=== PATIENT | female | born 1965 | race Two or more races ===

== ENCOUNTER 2021-09-22 06:00 | Inpatient (IN) | payer OTHER ==
[~2021-09-22] VITALS: Ht 157.5 cm; Wt 56.7 kg
[2021-09-29] MEDS ORDERED: INTESTINEX680 M1 PO (11:18)
[2021-09-29] MEDS ORDERED: LEVSIN/SL0.125 MG SL (11:18)
== END 2021-09-29 12:41 | disposition home or self-care (01) | DRG 742 ==
LOC: CIR.AMB 06:00 → O/R 15:13 → OB/GYN 15:13
PROVIDERS: Surgery; ADMIT Obstetrics & Gynecology Gynecology; ATTEND Obstetrics & Gynecology Gynecology
PROC: 0DTK4ZZ Resection of Ascending Colon, Percutaneous Endoscopic Approach (ICD-10-PCS; 2021-09-22)
PROC: 0DTB4ZZ Resection of Ileum, Percutaneous Endoscopic Approach (ICD-10-PCS; 2021-09-22)
PROC: 0DJD8ZZ Inspection of Lower Intestinal Tract, Via Natural or Artificial Opening Endoscopic (ICD-10-PCS; 2021-09-22)
PROC: 0DQH4ZZ Repair Cecum, Percutaneous Endoscopic Approach (ICD-10-PCS; 2021-09-22)
PROC: 0DQ84ZZ Repair Small Intestine, Percutaneous Endoscopic Approach (ICD-10-PCS; 2021-09-22)
PROC: 0DQN4ZZ Repair Sigmoid Colon, Percutaneous Endoscopic Approach (ICD-10-PCS; 2021-09-22)
PROC: 0DNW4ZZ Release Peritoneum, Percutaneous Endoscopic Approach (ICD-10-PCS; 2021-09-22)
PROC: 0UT64ZZ Resection of Left Fallopian Tube, Percutaneous Endoscopic Approach (ICD-10-PCS; principal; 2021-09-22 09:45)
PROC: 0UT14ZZ Resection of Left Ovary, Percutaneous Endoscopic Approach (ICD-10-PCS; 2021-09-22 09:45)
PROC: 05HB33Z Insertion of Infusion Device into Right Basilic Vein, Percutaneous Approach (ICD-10-PCS; 2021-09-27)
DX: D27.1 Benign neoplasm of left ovary (principal); K91.71 Accidental puncture and laceration of a digestive system organ or structure during a digestive system procedure; Z20.822 Contact with and (suspected) exposure to COVID-19; K66.0 Peritoneal adhesions (postprocedural) (postinfection)

== ENCOUNTER 2022-08-14 09:54 | Outpatient (CLI) | payer OTHER ==
[~2022-08-14 09:54] MED LIST: INTESTINEX680 M1 PO; LEVSIN/SL0.125 MG SL
== END 2022-08-14 10:33 | disposition home or self-care (01) ==
LOC: TOM 09:54
PROVIDERS: ATTEND Surgery
DX: K56.51 Intestinal adhesions [bands], with partial obstruction (principal)

== ENCOUNTER 2022-08-23 17:44 | Emergency (ER) | payer OTHER ==
[~2022-08-23] VITALS: Ht 157.5 cm; Wt 54.4 kg
== END 2022-08-24 01:57 | disposition home or self-care (01) ==
LOC: ER 17:44
DX: R10.30 Lower abdominal pain, unspecified (principal); Z88.6 Allergy status to analgesic agent

== ENCOUNTER 2022-09-02 07:27 | Outpatient (CLI) | payer OTHER | END 2022-09-02 07:29 | disposition home or self-care (01) | LOC: RX STUDY 07:27 | PROVIDERS: ATTEND Surgery | DX: K59.02 Outlet dysfunction constipation (principal); K56.51 Intestinal adhesions [bands], with partial obstruction; R19.7 Diarrhea, unspecified ==

== ENCOUNTER 2022-10-15 09:27 | Inpatient (IN) | payer OTHER ==
[~2022-10-15] VITALS: Ht 157.5 cm; Wt 54.4 kg
[2022-10-21] MEDS ORDERED: ESTRADIOL10 MCG (09:57)
[2022-10-24] MEDS ORDERED: ACETAMINOPHEN500 M2 PO (13:07)
[2022-10-24] MEDS ORDERED: NEURONTIN300 MG PO (13:07)
[2022-10-24] MEDS ORDERED: LEVSIN/SL0.125 MG SL (13:08)
[2022-10-24] MEDS ORDERED: INTESTINEX680 M1 PO (13:09)
[2022-10-24] MEDS ORDERED: MIRALAX510 GM PO (13:10)
== END 2022-10-24 16:33 | disposition home or self-care (01) | DRG 330 ==
LOC: O/R 10-21 05:57 → SURG 10-21 09:30 → SURH 10-21 13:39 → SURG 10-21 21:00 → SURH 10-24 16:33
PROVIDERS: ADMIT Surgery; ATTEND Surgery
PROC: 0DNB4ZZ Release Ileum, Percutaneous Endoscopic Approach (ICD-10-PCS; 2022-10-21)
PROC: 0DN84ZZ Release Small Intestine, Percutaneous Endoscopic Approach (ICD-10-PCS; 2022-10-21)
PROC: 0DQ84ZZ Repair Small Intestine, Percutaneous Endoscopic Approach (ICD-10-PCS; principal; 2022-10-21 21:00)
DX: K59.02 Outlet dysfunction constipation (principal); K91.71 Accidental puncture and laceration of a digestive system organ or structure during a digestive system procedure; N73.6 Female pelvic peritoneal adhesions (postinfective)